=== PATIENT | male | born 1970 | race African-American/Black ===

== ENCOUNTER 2021-09-26 11:22 | Outpatient (REF) | payer MEDICAID, SELFPAY | END 2021-09-26 11:23 | disposition home or self-care (01) | LOC: HO.LAB 11:22 | PROVIDERS: PCP Internal Medicine; Referring Provider Internal Medicine; Visit Provider Nurse Practitioner | DX: Z01.818 Encounter for other preprocedural examination (principal); D64.9 Anemia, unspecified | CPT/HCPCS: 36415; 80053; 85025; 99202 ==

== ENCOUNTER → 2022-01-19 10:56 | Day surgery (SDC) | payer MEDICAID, SELFPAY ==
[2022-01-14 14:03] VITALS: BMI 23.1
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
== END ==
PROVIDERS: Visit Provider Internal Medicine Gastroenterology
DX: Z12.11 Encounter for screening for malignant neoplasm of colon (principal); Z53.8 Procedure and treatment not carried out for other reasons; D64.9 Anemia, unspecified

== ENCOUNTER 2023-08-09 18:43 | Outpatient (REF) | payer MEDICAID, SELFPAY | END 2023-08-09 18:44 | disposition home or self-care (01) | LOC: HO.CHCLNP 18:43 | PROVIDERS: Visit Provider Internal Medicine | DX: R35.0 Frequency of micturition (principal) | CPT/HCPCS: 87086 ==

== ENCOUNTER 2023-08-10 16:00 | Outpatient (REF) | payer MEDICAID, SELFPAY ==
[2023-08-10 17:30] LABS: MANUAL DIFF FLAG NO
[2023-08-10 17:37] LABS: Basophils Percent Auto 0.3 % (0-2); Eosinophils Absolute Auto 0.1 X10*3/uL (0.0-0.4); Eosinophils Percent Auto 1.4 % (0-4); Hematocrit 35.3 % (42.0-52.0); Hemoglobin 11.9 g/dl (14.0-18.0); Imm Gran Abs Auto 0.02 X10*3/uL (0.00-0.03); Imm Gran Pct Auto 0.3 % (0.0-0.4); Lymphocytes Absolute Auto 2.3 X10*3/uL (1.2-4.9); Lymphocytes Percent Auto 38.4 % (20-40); Mean Corpuscular HGB Conc 33.7 g/dl (31.0-36.0); Mean Corpuscular Hemoglobin 29.8 pg (27.0-33.0); Mean Corpuscular Volume 88.3 fL (80.0-98.0); Mean Platelet Volume 10.8 fL (9.4-12.4); Monocytes Absolute Auto 0.4 X10*3/uL (0.1-1.2); Monocytes Percent Auto 5.9 % (2-11); Neutrophils Absolute Auto 3.2 x10*3/uL (2.0-8.3); Neutrophils Percent Auto 53.7 % (45-73); Platelet Count 252 X10*3/uL (160-400); Red Cell Distribution Width 14.9 % (11.0-16.0); White Blood Count 5.9 X10*3/uL (4.8-10.8)
[2023-08-10 18:34] LABS: Prostate Specific Antigen 0.37 ng/mL (<0.05-4.0)
[2023-08-11 11:35] LABS: CT PCR NOT DETECTED (Not Detect.); NG PCR NOT DETECTED (Not Detect.)
== END 2023-08-10 16:01 | disposition home or self-care (01) ==
LOC: HO.CHCLDS 16:00
PROVIDERS: Visit Provider Internal Medicine
DX: R35.0 Frequency of micturition (principal); Z13.89 Encounter for screening for other disorder
CPT/HCPCS: 0353U; 84153; 85025